=== PATIENT | female | born 2000 | race Caucasian/White ===

== ENCOUNTER 2020-11-15 15:46 | Emergency (ER) | payer OTHER ==
[~2020-11-15] VITALS: Ht 167.6 cm; Wt 52.2 kg
[~2020-11-15 15:46] MED LIST: ALLEGRA ALLERG180 MG PO; AMOX1TAB12 PO; CEPHALEXIN500 M1 PO; GILTUSS TR TAB1 EACH PO; MUPIROCIN15 GM TP
== END 2020-11-15 18:04 | disposition home or self-care (01) ==
LOC: ER 15:46
DX: S81.042A Puncture wound with foreign body, left knee, initial encounter (principal); X58.XXXA Exposure to other specified factors, initial encounter; Y93.89 Activity, other specified; Y92.89 Other specified places as the place of occurrence of the external cause; Y99.8 Other external cause status; M62.838 Other muscle spasm

== ENCOUNTER 2022-05-19 17:51 | Emergency (ER) | payer OTHER ==
[~2022-05-19] VITALS: Ht 160 cm; Wt 56.2 kg
== END 2022-05-19 22:12 | disposition home or self-care (01) ==
LOC: ER 17:51
DX: S90.415A Abrasion, left lesser toe(s), initial encounter (principal); X58.XXXA Exposure to other specified factors, initial encounter; Y93.89 Activity, other specified; Y92.832 Beach as the place of occurrence of the external cause; Y99.9 Unspecified external cause status